=== PATIENT | male | born 1990 | race Caucasian/White ===

== ENCOUNTER 2019-12-08 17:55 | Emergency (ER) | payer OTHER, SELFPAY ==
--- NOTE | ~2019-12-08 | XR_ITS ---
XR hip RT min 3V w AP pelvis 12/08/2019 19:11 INDICATION: Right hip pain and swelling PROCEDURE: 4 views right hip COMPARISON: No prior studies for comparison. FINDINGS: Fracture, dislocation or subluxation is not identified. Pelvic rings are intact. Sacral for amen are symmetric. There is a bone island in the right femoral neck. The soft tissues appear within normal limits. No foreign bodies are identified. IMPRESSION: 1: NO ACUTE BONE OR JOINT ABNORMALITY IDENTIFIED. Reviewed, dictated and finalized at location A.
[2019-12-08 18:02] VITALS: BP 143/70; PULSE 62; RESP 18; TEMP 36.5; O2SAT 100
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
[2019-12-08 20:18] VITALS: BP 131/78; PULSE 64; RESP 16; TEMP 36.8; O2SAT 100
== END 2019-12-08 20:19 | disposition home or self-care (01) ==
PROVIDERS: Emergency Provider Family Medicine; PCP Family Medicine
DX: S70.01XA Contusion of right hip, initial encounter (principal); S50.311A Abrasion of right elbow, initial encounter; S80.211A Abrasion, right knee, initial encounter; V18.4XXA Pedal cycle driver injured in noncollision transport accident in traffic accident, initial encounter; Y93.55 Activity, bike riding
CPT/HCPCS: 73502; 99283